=== PATIENT | female | born 2000 | race African-American/Black ===

== ENCOUNTER 2020-10-15 18:22 | Emergency (ER) | payer OTHER, MEDICAID ==
[2020-10-15] MEDS ORDERED: KETOROLAC TROMETHAMINE 60 MG/2 ML SDV IM ONE (18:39)
--- NOTE | 2020-10-15 18:52 | ER Document Report ---
ED General Pain - General Chief Complaint: Low Back Pain Stated Complaint: LOW BACK PAIN,RIGHT LEG PAIN Time Seen by Provider: 10/15/20 18:32 - Related Data Allergies/Adverse Reactions: No Known Allergies Allergy (Unverified 10/15/20 18:31) Past Medical History - Social History Smoking Status: Never Smoker Frequency of alcohol use: None
[2020-10-15 19:13] LABS: APPEARANCE,URINE CLOUDY; BILIRUBIN,URINE NEGATIVE (NEGATIVE); COLOR,URINE YELLOW; GLUCOSE, URINE NEGATIVE (NEGATIVE); KETONES,URINE NEGATIVE (NEGATIVE); LEUKOCYTE ESTERASE,URINE LARGE (NEGATIVE); NITRITE,URINE POSITIVE (NEGATIVE); PROTEIN,URINE 100 mg/dL (NEGATIVE); URINE SPECIFIC GRAVITY 1.012
[2020-10-15] MEDS ORDERED: NORMAL SALINE 1000 ML 1,000 ML IV ONE ×2 (19:14→21:09)
--- NOTE | 2020-10-15 19:16 | ER Document Report ---
ED Medical Screen (RME) - General Chief Complaint: Low Back Pain Stated Complaint: LOW BACK PAIN,RIGHT LEG PAIN Time Seen by Provider: 10/15/20 18:32 - HPI Notes: 10/15/20 19:17 20-year-old female presents to ED for evaluation of pain radiating down her leg. Patient states that she had recently taken a car trip and is concerned that this may be due to her holding her urine. She states that she feels warm however has not checked her temperature. Denies any abdominal pain or dysuria. Denies any nausea or vomiting. States she feels increasingly uncomfortable with movement. She reports she recently finished her menstrual cycle. She denies concern for . Denies any bleeding or discharge currently. - Related Data Allergies/Adverse Reactions: No Known Allergies Allergy (Unverified 10/15/20 18:31) Past Medical History - Social History Frequency of alcohol use: None Physical Exam - Vital signs Vitals: Temp Pulse Resp BP Pulse Ox 103.2 F H 139 H 20 142/82 H 100 10/15/20 18:30 10/15/20 18:30 10/15/20 18:30 10/15/20 18:30 10/15/20 18:30 General: Alert and oriented x3. uncomfortably laying across several chairs in triage. Skin: Intact without any jaundice, pallor, or erythema. Warm and dry. Neck: Supple with no lymphadenopathy. Full range of motion. Heart: Regular rate and rhythm. S1,S2. No murmurs, rubs, or gallops. Lungs: Clear to ausculation bilaterally. No wheezes, rhonchi, rales. Equal chest expansion. No retractions. Abdomen: Soft, nontender to palpation, nondistended. Positive bowel sounds in all 4 quadrants. No hepatosplenomegaly. No masses. CVA tenderness bilaterally. Neuro: GCS 15. Moving all extremities without discomfort. Psych: Mood and affect appropriate. Course - Vital Signs Vital signs: Temp Pulse Resp BP Pulse Ox 103.2 F H 139 H 20 142/82 H 100 10/15/20 18:30 10/15/20 18:30 10/15/20 18:30 10/15/20 18:30 10/15/20 18:30 - Laboratory Results Laboratory Results Interpreted: 10/15/20 18:20 Urine Protein 100 H Urine Blood SMALL H Urine Nitrite POSITIVE H Urine Urobilinogen 4.0 H Ur Leukocyte Esterase LARGE H
[2020-10-15 19:28] LABS: ABSOLUTE BASOPHILS # (AUTO) 0.1 10^3/uL (0.0-0.2); ABSOLUTE LYMPHOCYTES (AUTO) 1.7 10^3/uL (0.5-4.7); ABSOLUTE MONOCYTES (AUTO) 1.7 10^3/uL (0.1-1.4); ABSOLUTE NEUT (AUTO) 11.3 10^3/uL (1.7-8.2); BASOPHILS % (AUTO) 0.3 % (0-2); HEMATOCRIT 36.8 % (36.0-47.0); HEMOGLOBIN 12.8 g/dL (12.0-15.5); LYMPHOCYTES % (AUTO) 11.8 % (13-45); MEAN CORPUSCULAR HEMOGLOBIN 30.8 pg (27.0-33.4); MEAN CORPUSCULAR HGB CONC 34.6 g/dL (32.0-36.0); MEAN CORPUSCULAR VOLUME 89 fl (80-97); MONOCYTES % (AUTO) 11.6 % (3-13); PLATELET COUNT 264 10^3/uL (150-450); RED BLOOD COUNT 4.14 10^6/uL (3.72-5.28); RED CELL DISTRIBUTION WIDTH 13.7 % (11.5-14.0); SEGMENTED NEUTROPHILS % (AUTO) 76.3 % (42-78); TOTAL CELLS COUNTED % (AUTO) 100 %; WHITE BLOOD COUNT 14.8 10^3/uL (4.0-10.5)
[2020-10-15 19:46] LABS: ALBUMIN 4.1 g/dL (3.5-5.0); ALKALINE PHOSPHATASE 87 U/L (38-126); ANION GAP 10 (5-19); ASPARTATE AMINO TRANSFERASE 21 U/L (14-36); BILIRUBIN,DIRECT 0.2 mg/dL (0.0-0.4); BILIRUBIN,TOTAL 0.6 mg/dL (0.2-1.3); BLOOD UREA NITROGEN 9 mg/dL (7-20); CALCIUM 9.3 mg/dL (8.4-10.2); CARBON DIOXIDE 27 mmol/L (22-30); CHLORIDE 97 mmol/L (98-107); GLUCOSE 108 mg/dL (75-110); POTASSIUM 3.7 mmol/L (3.6-5.0); TOTAL PROTEIN 7.5 g/dL (6.3-8.2)
--- NOTE | 2020-10-15 19:58 | RADIOLOGY REPORT (SQ) ---
EXAM DESCRIPTION: U/S RETROPERITON LTD IMAGES COMPLETED DATE/TIME: 10/15/2020 6:46 pm REASON FOR STUDY: right flank pain COMPARISON: None. TECHNIQUE: Dynamic and static grayscale images acquired of the kidneys and bladder and recorded on P ACS. Additional selected color Doppler and spectral images recorded. LIMITATIONS: None. FINDINGS: RIGHT KIDNEY: Normal size. Normal echogenicity. No solid or suspicious masses. No h ydronephrosis. No calcifications. LEFT KIDNEY: Normal size. Normal echogenicity. No solid or suspicious masses. No hydronephrosi s. No calcifications. BLADDER: Decompressed and not well visualized. OTHER FINDINGS: No other significant finding. IMPRESSION: Normal sonographic appearance of the kidneys. Urinary bladder is poorly evaluated due t o decompression. TECHNICAL DOCUMENTATION: JOB ID: [id number] 2010 [employer]- All Rights Reserved Reading location - IP/workstation name: [email or web address]
[2020-10-15] MEDS ORDERED: CEFTRIAXONE INJ 1000 MG VIAL IV ONE (20:16)
[2020-10-15] MEDS ORDERED: MORPHINE SULFATE 10 MG/ML INJ IV ONE (20:16)
[2020-10-15] MEDS ORDERED: ACETAMINOPHEN 325 MG TABLET PO ONE (21:06)
--- NOTE | 2020-10-15 21:09 | ER Document Report ---
ED General - General Chief Complaint: Low Back Pain Stated Complaint: LOW BACK PAIN,RIGHT LEG PAIN Time Seen by Provider: 10/15/20 18:32 Notes: Patient is a 20-year-old female who comes emergency department for chief complaint of 2 days of fever, she states that she also started having lower abdominal discomfort "over my bladder" since yesterday, she states that over the past day this is changed and now she has a lot of pain in her right lower back that radiates down to the top of her buttocks. Pain is somewhat worse with movement but she denies injury. She denies dysuria, vaginal bleeding or discharge. She reports nausea and states she vomited twice today. She denies history of kidney stones. She denies any surgeries or daily medications. - Related Data Allergies/Adverse Reactions: No Known Allergies Allergy (Unverified 10/15/20 18:31) Past Medical History - General Information source: Patient - Social History Smoking Status: Never Smoker Frequency of alcohol use: None Lives with: Family Family History: Reviewed & Not Pertinent - Medical History Medical History: Negative Surgical Hx: Negative - Immunizations Immunizations up to date: Yes Hx Diphtheria, Pertussis, Tetanus Vaccination: Yes Review of Systems - Review of Systems Constitutional: See HPI EENT: No symptoms reported Cardiovascular: No symptoms reported Respiratory: No symptoms reported Gastrointestinal: See HPI Genitourinary: See HPI Female Genitourinary: No symptoms reported Musculoskeletal: No symptoms reported Skin: No symptoms reported Hematologic/Lymphatic: No symptoms reported Neurological/Psychological: No symptoms reported Physical Exam - Vital signs Vitals: Temp Pulse Resp BP Pulse Ox 103.2 F H 139 H 20 142/82 H 100 10/15/20 18:30 10/15/20 18:30 10/15/20 18:30 10/15/20 18:30 10/15/20 18:30 - Notes Notes: GENERAL: Alert, interacts well. No acute distress. HEAD: Normocephalic, atraumatic. EYES: Pupils equal, round, and reactive to light. Extraocular movements intact. ENT: Oral mucosa moist, tongue midline. Oropharynx unremarkable. Airway patent. NECK: Full range of motion. Supple. Trachea midline. No lymphadenopathy. LUNGS: Clear to auscultation bilaterally, no wheezes, rales, or rhonchi. No respiratory distress. Non-tender chest wall. HEART: Tachycardia, normal rhythm, no murmur ABDOMEN: No noted abdominal tenderness, no guarding, distention, or rigidity EXTREMITIES: Moves all 4 extremities spontaneously. No edema, normal radial and dorsalis pedis pulses bilaterally. No cyanosis. BACK: There is some mild right-sided CVA tenderness. No cervical, thoracic, lumbar midline tenderness. No saddle anesthesia, normal distal neurovascular exam. Moves all extremities in full range of motion. NEUROLOGICAL: Alert and oriented x3. Normal speech. Cranial nerves II through XII grossly intact. Strength 5/5 in all extremities. PSYCH: Normal affect, normal mood. SKIN: Warm, dry, normal turgor. No rashes or lesions noted. Course - Re-evaluation Re-evalutation: Patient is febrile and tachycardic, however she is quite well-appearing, smiling, talkative, does not have any complaints on my evaluation. Her abdomen is soft and benign. She has borderline right-sided CVA tenderness. Overall presentation is very suggestive of pyelonephritis. CBC shows leukocytosis of 14.8 with elevation of neutrophils but no bandemia. Lactic acid is not elevated. Chemistry unremarkable. Urine shows infection consistent with pyelonephritis with white blood cell clumps. Urine was cultured, blood cultures are pending. After medications and IV fluids vital signs were rechecked and have normalized, tachycardia resolved, no hypotension. Patient states he feels much better and is requesting to leave. She has received Rocephin. Reviewed ultrasound of the kidneys from triage and these are unremarkable. Low suspicion of passing ureterolithiasis. I do not believe pat ient is septic at this time either. I discussed results and recommendations, discussed return precautions in detail. Patient states appreciation and agreement. Stable and well-appearing at time of discharge. - Vital Signs Vital signs: Temp Pulse Resp BP Pulse Ox 99.6 F 97 19 136/78 H 98 10/15/20 21:37 10/15/20 21:37 10/15/20 21:37 10/15/20 21:37 10/15/20 21:37 - Laboratory Results Result Diagrams: 10/15/20 19:10 10/15/20 19:10 Laboratory Results Interpreted: 10/15/20 10/15/20 10/15/20 18:20 19:10 19:10 WBC 14.8 H Lymph % (Auto) 11.8 L Absolute Neuts (auto) 11.3 H Absolute Monos (auto) 1.7 H Sodium 133.7 L Chloride 97 L Urine Protein 100 H Urine Blood SMALL H Urine Nitrite POSITIVE H Urine Urobilinogen 4.0 H Ur Leukocyte Esterase LARGE H Critical Laboratory Results Reviewed: No Critical Results - Radiology Results Critical Radiology Results Reviewed: No Critical Results Discharge - Discharge Clinical Impression: Flank pain Urinary tract infection Qualifiers: Urinary tract infection type: site unspecified Hematuria presence: without hematuria Qualified Code(s): N39.0 - Urinary tract infection, site not specified Fever Qualifiers: Fever type: unspecified Qualified Code(s): R50.9 - Fever, unspecified Vomiting Qualifiers: Vomiting type: unspecified Vomiting Intractability: non-intractable Nausea presence: with nausea Qualified Code(s): R11.2 - Nausea with vomiting, unspecified Condition: Stable Disposition: HOME, SELF-CARE Additional Instructions: Your evaluation is most consistent with a kidney infection. Take the antibiotics as prescribed, drink plenty of fluids, take ibuprofen and Tylenol together every 6 hours if needed for pain/fever/chills. Take Zofran if needed for nausea. Follow-up with primary care. Return if you worsen including severe worsening pain, uncontrolled vomiting, continued spiking fevers, or any other concerning or worsening symptoms. Prescriptions: Cephalexin Monohydrate [Keflex 500 mg Capsule] 500 mg PO QID #28 capsule Ondansetron [Zofran Odt 4 mg Tablet] 1 - 2 tab PO Q4H PRN #15 tab.rapdis PRN Reason: For Nausea/Vomiting Forms: Return to Work
[2020-10-15 21:51] VITALS: BP 136/78
== END 2020-10-15 22:32 | disposition home or self-care (01) ==
LOC: ER 18:22
DX: N39.0 Urinary tract infection, site not specified (principal); R50.9 Fever, unspecified; R11.2 Nausea with vomiting, unspecified; M54.5 Low back pain; R10.9 Unspecified abdominal pain; R00.0 Tachycardia, unspecified
CPT/HCPCS: 99285; 96372; 96361; 96375; 96365; 36415; 87040; 87086; 83605; 85025; 81025; 87088; 80053; 81001; 76775; J1885; J2270; J0696; J7030; 87186